=== PATIENT | female | born 1945 | race Two or more races ===

== ENCOUNTER 2025-07-09 13:10 | Inpatient (IN) | payer OTHER, MEDICAID ==
[~2025-07-09] VITALS: Ht 160 cm; Wt 54.0 kg
[2025-07-09 14:30] VITALS: PULSE 90; RESP 12; O2SAT 96
--- NOTE | 2025-07-09 15:09 | DVH ---
CLINICAL HISTORY: fall TECHNIQUE: Helical scanning was performed of the head from the skull base to the vertex. Multiplanar reconstructions were performed. This exam was performed according to our departmental dose optimizat ion program. Up-to-date CT equipment and radiation dose reduction techniques are utilized as appropri ate. CTDI 58.6 DLP 152.1 COMPARISON: None FINDINGS: There is no evidence for acute intracranial hemorrhage, acute ischemic changes, mass, mass effect, or extra-axial fluid collection. There is no hydrocephalus or midline shift. There is no effacement of the cerebral sulci and basal subarachnoid cisterns. The cordova-white matter differentiation is well nicanor ntained. There is mild brain volume loss and minimal chronic small vessel schema change. The imaged paranasal sinuses are clear. IMPRESSION: NO ACUTE INTRACRANIAL ABNORMALITY SEEN.
--- NOTE | 2025-07-09 16:19 | DVH ---
XY CHEST PORTABLE, HISTORY: ams COMPARISON: None None TECHNICAL DATA: 1 view of the chest was obtained. FINDINGS: Lines and tubes: None Cardiomediastinal silhouette: normal Pulmonary vasculature: normal Lung expansion: low Lung airspace: normal Lung interstitium: prominent Pleura: normal Pneumothorax: no Bones: Unremarkable Other: no IMPRESSION: Mild intersitital pulmonary edema.
--- NOTE | 2025-07-09 16:25 | ED.PDOC ---
Payam. trauma (HPI) HPI Comments This is a 79 year old female MAXIMILIANA presenting to the ED with chief complaint of head injury s/p fall. EMS reports patient had gotten out of bed an hour ago and he slipped and fell backwards, hitting her head. EMS relays that the patient now has a laceration to the back of her head with uncontrolled bleeding, so they wrapped it en route to the ED. EMS denies any witnessed LOC, dizziness, N/V, or further injury. Chief Complaint: Fall Injury Time Seen by MD: 15:00 Reviewed notes: Nurses Notes, Bingo Manager Notes, Medications, Allergies Allergies: Coded Allergies: NO KNOWN ALLERGIES (Unverified , 07/09/25) Information Source: Patient, Emergency Med Personnel Mode of Arrival: EMS Severity: Moderate Timing: Hours Duration: Since onset Prehospital treatment: None Location: Head Location of laceration: Head Mechanism: Fall Past Medical History PAST MEDICAL HISTORY: Dementia Surgical History: Denies all surgeries CERTIFIED PHYSICIAN ASSISTANT History: Denies all CERTIFIED PHYSICIAN ASSISTANT Hx Family History Family History: Reviewed,noncontributory to illness Social History Smoker: Non-Smoker Alcohol: Denies ETOH Use Drugs: Denies Drug Use Lives In: [facility] Constitutional: denies: chills, diaphoresis, fatigue, fever, malaise, sweats, weakness, others EENTM: denies: blurred vision, double vision, ear bleeding, ear discharge, ear drainage, ear pain, ear ringing, eye pain, eye redness, hearing loss, mouth pain, mouth swelling, nasal discharge, nose bleeding, nose congestion, nose pain, photophobia, tearing, throat pain, throat swelling, voice changes, others Respiratory: denies: cough, hemoptysis, orthopnea, SOB at rest, shortness of breath, SOB with excertion, stridor, wheezing, others Cardiovascular: denies: chest pain, dizzy spells, diaphoresis, Dyspnea on exertion, edema, irregular heart beat, left arm pain, lightheadedness, palpitations, PND, syncope, others Gastrointestinal: denies: abdomen distended, abdominal pain, blood streaked bowels, constipated, diarrhea, dysphagia, difficulty swallowing, hematemesis, melena, nausea, poor appetite, poor fluid intake, rectal bleeding, rectal pain, vomiting, others Genitourinary: denies: abnormal vagina bleeding, burning, dyspareunia, dysuria, flank pain, frequency, hematuria, incontinence, pain, , vagina disc harge, urgency, others Neurological: denies: dizziness, fainting, headache, left sided numbness, left sided weakness, numbness, paresthesia, pre-existing deficit, right sided numbness, right sided weakness, seizure, speech problems, tingling, tremors, weakness, others Musculoskeletal: denies: back pain, gout, joint pain, joint swelling, muscle pain, muscle stiffness, neck pain, others Integumetry: reports: laceration (scalp); denies: bruises, change in color, change in hair/nails, dryness, lesions, lumps, rash, wounds, others Allergic/Immunocompromised: denies: Difficulty Healing, Frequent Infections, Hives, Itching, others Hematologic/Lymphatic: denies: anemia, blood clots, easy bleeding, easy bruising, swollen glands, others Endocrine: denies: excessive hunger, excessive sweating, excessive thirst, excessive urination, flushing, intolerance to cold, intolerance to heat, unexplained weight gain, unexplained weight loss, others Psychiatric: denies: anxiety, bipolar disorder, depression, hopeless, panic disorder, schizophrenia, sleepless, suicidal, others All Other Systems: Reviewed and Negative Physical Exam General Appearance: No Apparent Distress, Normal HEENT: Normal ENT Inspection, Pharynx Normal, TMs Normal Neck: Full Range of Motion, Non-Tender, Normal, Normal Inspection Respiratory: Chest Non-Tender, Lungs Clear, No Accessory Muscle Use, No Respiratory Distress, Normal Breath Sounds Cardiovascular: No Edema, No JVD, No Murmur, No Gallop, Normal Peripheral Pulses, Regular Rate/Rhythm Breast Exam: Deferred Gastrointestinal: No Organomegaly, Non Tender, No Pulsatile Mass, Normal Bowel Sounds, Soft Genitalia: Deferred Pelvic: Deferred Rectal: Deferred Extremities: No calf tenderness, Normal capillary refill, Normal inspection, Normal range of motion, Non-tender, No pedal edema Musculoskeletal : Apperance: Normal Neurologic: Alert, laboratory equipment cleaner II-XII nml as Tested, No Motor Deficits, Normal Affect, Normal Mood, No Sensory Deficits Cerebellar Function: Normal Reflexes: Normal Skin: Dry, Lacerations (1cm bleeding laceration to scalp), Normal Color, Warm Lymphatic: No Adenopathy Was a procedure done? Was a procedure done?: Yes Sedation Sedation?: No Laceration Repair : Location Scalp Length 1cm Anesthetic: Lidocaine, Without epi Laceration Repair Prep: Saline, Betadine, by Irrigation, Manual Scrub Laceration Repair Wound Comple: subcut tissue repair Laceration Repair: SQ, [place] (4 corry) Informed consent obtained: Yes Risks, benefits, and alternati: Yes Differential Diagnosis Multiple Trauma: Closed Head Injury, Contusion, Laceration X-Ray, Labs, Meds, VS Vital Signs Date Time Temp Pulse Resp B/P (MAP) Pulse Ox O2 Delivery O2 Flow Rate FiO2 07/09/25 18:00 66 11 123/86 (98) 99 07/09/25 16:00 72 07/09/25 16:00 74 21 149/84 (105) 98 07/09/25 15:00 64 11 126/86 (99) 98 07/09/25 14:30 90 12 96 Room Air* 0 21 07/09/25 14:30 97.6 90 12 123/81 (95) 96 97.6 07/09/25 13:25 98.9 80 14 160/80 100 98.9 Lab Test 07/09/25 18:11 07/09/25 17:28 07/09/25 16:05 Range/Units POC Glucose 153 H 70-106 mg/dl Troponin I High Sensitivity Pending 5 </=34 ng/L White Blood Count 13.6 H 4.4-10.8 10^3/uL Red Blood Count 4.41 4.0-5.20 10^6/uL Hemoglobin 13.3 12.2-16.2 g/dL Hematocrit 40.3 36.0-46.0 % Mean Corpuscular Volume 91.4 80.0-100.0 fL Mean Corpuscular Hemoglobin 30.3 28.0-32.0 pg Mean Corpuscular Hemoglobin Concent 33.1 32.0-36.0 g/dL Red Cell Distribution Width 14.5 H 11.8-14.3 % Platelet Count 154 140-450 10^3/uL Mean Platelet Volume 9.9 6.9-10.8 fL Neutrophils (%) (Auto) 83.8 H 37.0-80.0 % Lymphocytes (%) (Auto) 9.5 L 10.0-50.0 % Monocytes (%) (Auto) 6.4 0.0-12.0 % Eosinophils (%) (Auto) 0.2 0.0-7.0 % Basophils (%) (Auto) 0.1 0.0-2.0 % Neutrophils # (Auto) 11.4 H 1.6-8.6 10 ^3/uL Lymphocytes # (Auto) 1.3 0.4-5.4 10 ^3/uL Monocytes # (Auto) 0.9 0-1.3 10 ^3/uL Eosinophils # (Auto) 0 0-0.8 10 ^3/uL Basophils # (Auto) 0 0-0.2 10 ^3/uL Nucleated Red Blood Cells 0.1 % Sodium Level 144 136-145 mmol/L Potassium Level 3.2 L 3.5-5.1 mmol/L Chloride Level 109 H 98-107 mmol/L Carbon Dioxide Level 22 20-31 mmol/L Anion Gap 13 5-15 Blood Urea Nitrogen 8 L 9-23 mg/dL Creatinine 0.71 0.550-1.02 mg/dL Glomerular Filtration Rate Calc 86 >90 mL/min BUN/Creatinine Ratio 11.3 10.0-20.0 Serum Glucose 36 *L 74-106 mg/dL Calcium Level 9.6 8.7-10.4 mg/dL Plasma/Serum Blood Alcohol < 3.0 <10 mg/dL Current Medications Medications (Trade) Dose Ordered Sig/Sven Route Start Time Stop Time Status Last Admin Dextrose 50 ml ONCE ONCE IV 07/09/25 17:15 07/09/25 17:16 DC 07/09/25 17:14 Time of 1ST Reevaluation: 15:30 Reevaluation 1ST: Improved Patient Education/Counseling: Diagnosis, Treatment Family Education/Counseling: No Family Present Departure 1 Departure Time of Disposition: 18:36 (Patient presents with altered mental status after a fall. Patient's laceration was repaired by me. Patient's workup is benign. We will admit patient for further workup and expert consultation) Impression: Primary Impression: Acute metabolic encephalopathy Additional Impressions: Altered mental status Qualified Codes: R41.82 - Altered mental status, unspecified Scalp laceration Qualified Codes: S01.01XA - Laceration without foreign body of scalp, initial encounter Fall Qualified Codes: W19.XXXA - Unspecified fall, initial encounter Disposition: ADMITTED INPATIENT Admit to: Med Surg Condition: Serious Critical Care Note Critical Care Time?: Yes Critical care comment: Altered Mental status Authorized and Performed by: Harry Reyes MD Total critical care time: Approximately 78 minutes Due to a high probability of clinically significant, life threatening deterioration, the patient required my highest level of preparedness to intervene emergently and I personally spent this critical care time directly and personally managing the patient. This critical care time included obtaining a history; examining the patient; pulse oximetry; ordering and review of studies; arranging urgent treatment with development of a management plan; evaluation of patient's response to treatment; frequent reassessment; and, discussions with other providers. This critical care time was performed to assess and manage the high probability of imminent, life-threatening deterioration that could result in multi-organ failure. It was exclusive of separately billable procedures and treating other patients and teaching time. Please see my other sections and the rest of the note for further information on patient assessment and treatment. Stability Stability form required: No Heart Score Heart Score: Heart Score Response (Comments) Value History N/A 0 EKG N/A 0 Age N/A 0 Risk Factors N/A 0 Troponin N/A 0 Total 0 I personally scribed for HARRY REYES MD ([email or web address]) on 07/09/25 at 16:25. Electronically submitted by Willie Villanueva ([email or web address]). HARRY REYES MD Jul 09, 2025 16:25
[2025-07-09 16:40] LABS: Sodium 144 mmol/L (136-145)
[2025-07-09 16:41] LABS: Anion Gap 13 (5-15); Calcium 9.6 mg/dL (8.7-10.4); Carbon Dioxide 22 mmol/L (20-31); Hematocrit 40.3 % (36.0-46.0); Hemoglobin 13.3 g/dL (12.2-16.2); Mean Corpuscular Hemoglobin 30.3 pg (28.0-32.0); Mean Corpuscular Volume 91.4 fL (80.0-100.0); Nucleated Red Blood Cells % 0.1 %
[2025-07-09 16:46] LABS: BUN/Creatinine Ratio 11.3 (10.0-20.0)
[2025-07-09 17:07] LABS: Blood Urea Nitrogen 8 mg/dL (9-23); Chloride 109 mmol/L (98-107); Potassium 3.2 mmol/L (3.5-5.1)
[2025-07-09 17:10] LABS: Glucose 36 mg/dL (74-106)
[2025-07-09] MEDS: DEXTROSE (50%) 50ML SYRG IV ONE (17:14)
[2025-07-09 18:40] LABS: Urine Protein, UAD 1+ (Negative)
[2025-07-09] MEDS ORDERED: ONDANSETRON HCL 4 MG/2 ML VIAL IV PRN (21:45)
[2025-07-09] MEDS ORDERED: DOCUSATE SOD 100 MG CAP PO PRN (21:45)
[2025-07-09] MEDS ORDERED: DEXTROSE (50%) 50ML SYRG IV PRN (21:45)
[2025-07-09] MEDS: SODIUM CHLOR 0.9% PF (SALINE LOCK) 10ML VIAL/SYR IV SCH (22:02)
[2025-07-09] MEDS: FUROSEMIDE 20 MG/2 ML VIAL IV ONE (22:11)
[2025-07-09] MEDS: POTASSIUM CHL 20 Meq TABLET PO ONE (22:12)
[2025-07-09] MEDS ORDERED: MORPHINE SULFATE INJ 2 MG/ml SYRG IV PRN (23:45)
[2025-07-09] MEDS ORDERED: NITROGLYCERIN 0.4 MG SL TAB SL PRN (23:45)
--- NOTE | 2025-07-09 23:45 | DVHHP2 ---
History of Present Illness Reason for Visit: Acute metabolic encephalopathy History of Present Illness The patient is a 79-year-old female with past medical history of dementia who presented to [facility] ED for evaluation of mechanical fall at home with head injury. As reported by EMS, the patient was walking to the bathroom when she slipped and fall backward hitting her head with sustained laceration to the back of her head with control bleeding, wrapped with bandage EN route to our facility ED. Patient was seen and evaluated in the ED, laboratory data shows WBC 13.6, platelets 154, sodium 144, potassium 3.2, BUN 8, creatinine 0.71, glucose 36, calcium 9.6, troponin 5, blood pressure 101/50, heart rate 66, temperature 98.6 F, O2 saturation 98% on room air. Head CT showed no acute intracranial abnormality, chest x-ray revealing mild interstitial pulmonary edema. Please see medication orders section in the computer. On my assessment, patient denied chest pain, no headache, no dizziness, no diaphoresis, blurry vision, no loss of consciousness, no shortness of breaths, no nausea, no vomiting, no fever, no chills. Patient was admitted for further evaluation and medical management. Past Medical History Dementia Past Surgical History Denies all surgeries Family History Reviewed, noncontributory to the management of this case. Past Social History The patient lives at home, denies smoking, alcohol or illicit drugs abuse. Review of Systems Constitutional: Yes: Weakness; No: Fever, Chills, Sweats, Malaise, Other Eyes: No: Pain, Vision change, Conjunctivae inflammation, Eyelid inflammation, Other, Redness ENT: No: Ear pain, Ear discharge, Nose pain, Nose discharge, Nose congestion, Mouth pain, Mouth swelling, Throat pain, Throat swelling, Other Respiratory: No: Cough, Dry, Shortness of breath, SOB with excertion, Wheezing, Hemoptysis, Pleuritic Pain, Sputum, Wheezing, Other Cardiovascular: No: Chest Pain, Palpitations, Orthopnea, Paroxysmal Noc. Dyspnea, Edema, Lt Headedness, Other Gastrointestinal: No: Nausea, Vomiting, Abdominal Pain, Diarrhea, Constipation, Melena, Hematochezia, Other Genitourinary: No Dysuria, No Frequency, No Incontinence, No Hematuria, No Retention, No Other Musculoskeletal: No: other, neck pain, shoulder pain, arm pain, back pain, hand pain, leg pain, foot pain Skin: Other (Scalp laceration.); No: Rash, Lesions, Jaundice, Bruising Neurological: No: Weakness, Numbness, Incoordination, Change in speech, Confusion, Seizures, Other Allergies: Coded Allergies: NO KNOWN ALLERGIES (Unverified , 07/09/25) Medications Current Medications Medications Dose Ordered Sig/Sven Route Start Time Stop Time Status Last Admin Dose Admin Ceftriaxone Sodium 50 ml @ 100 mls/hr DAILY@09 IV 07/10/25 09:00 Diagnostic Test (Pha) 1 strip IQ4HR 07/10/25 00:00 Insulin Human Regular IQ4HR SC 07/10/25 00:00 Dextrose 50 ml UD PRN IV 07/09/25 21:45 Sodium Chloride 10 ml Q8HR IV 07/09/25 22:00 07/09/25 22:02 10 ML Acetaminophen/ Hydrocodone Bitart 1 tab Q4HP PRN PO 07/09/25 21:45 Ondansetron HCl 4 mg Q4HP PRN IV 07/09/25 21:45 Docusate Sodium 100 mg BIDPRN PRN PO 07/09/25 21:45 Acetaminophen 650 mg Q6HP PRN PO 07/09/25 21:45 Furosemide 20 mg DAILY IV 07/10/25 10:00 Exam Vital Signs Vital Signs Date Time Temp Pulse Resp B/P (MAP) Pulse Ox O2 Delivery O2 Flow Rate FiO2 07/09/25 23:15 55 18 123/61 (81) 97 07/09/25 19:18 98.6 98.6 07/09/25 19:18 Room Air* 0 21 General Appearance: Alert, Oriented X3, Cooperative, No acute distress HEENT: Atraumatic, PERRLA, EOMI, Mucous membr. moist/pink Respiratory: Normal air movement Cardiovascular: Regular rate, Normal S1, Normal S2, No murmurs Abdominal: Normal bowel sounds, Soft, No tenderness, No hepatospenomegaly, No masses Extremities: No clubbing, No cyanosis, No edema, Normal pulses, No tenderness/swelling Skin: No rashes, No significant lesion Neuro: Normal speech, Normal tone, Sensation intact, Cranial nerves 3-12 NL, Reflexes 2+, Other (Generalized weakness) Psych/Mental Status: Mental status NL, Mood NL Labs/Xrays Labs Test 07/09/25 19:21 9/4/25 18:11 07/09/25 17:21 07/09/25 16:05 Range/Units Troponin I High Sensitivity 5 </=34 ng/L POC Glucose 153 H 70-106 mg/dl Urine Color Yellow Yellow Urine Clarity Clear Clear Urine pH 5.0 5.0-9.0 Urine Specific [place] 1.024 1.001-1.035 Urine Protein 1+ H Negative Urine Ketones 1+ H Negative Urine Blood 1+ H Negative /uL Urine Nitrite Negative Negative Urine Bilirubin Negative Negative Urine Urobilinogen Normal Negative mg/dL Urine Leukocyte Esterase Negative Negative /uL Urine RBC 3 0 - 4 /hpf Urine Microscopic WBC 2 0-5 /HPF Urine Squamous Epithelial Cells Few <5 /hpf Urine Calcium Oxalate Crystals Few None Seen Urine Bacteria None seen None Seen /hpf Urine Hyaline Casts Mod 0 - 2 /lpf Urine Mucus Few None Seen Urine Glucose Normal Normal mg/dL White Blood Count 13.6 H 4.4-10.8 10^3/uL Red Blood Count 4.41 4.0-5.20 10^6/uL Hemoglobin 13.3 12.2-16.2 g/dL Hematocrit 40.3 36.0-46.0 % Mean Corpuscular Volume 91.4 80.0-100.0 fL Mean Corpuscular Hemoglobin 30.3 28.0-32.0 pg Mean Corpuscular Hemoglobin Concent 33.1 32.0-36.0 g/dL Red Cell Distribution Width 14.5 H 11.8-14.3 % Platelet Count 154 140-450 10^3/uL Mean Platelet Volume 9.9 6.9-10.8 fL Neutrophils (%) (Auto) 83.8 H 37.0-80.0 % Lymphocytes (%) (Auto) 9.5 L 10.0-50.0 % Monocytes (%) (Auto) 6.4 0.0-12.0 % Eosinophils (%) (Auto) 0.2 0.0-7.0 % Basophils (%) (Auto) 0.1 0.0-2.0 % Neutrophils # (Auto) 11.4 H 1.6-8.6 10 ^3/uL Lymphocytes # (Auto) 1.3 0.4-5.4 10 ^3/uL Monocytes # (Auto) 0.9 0-1.3 10 ^3/uL Eosinophils # (Auto) 0 0-0.8 10 ^3/uL Basophils # (Auto) 0 0-0.2 10 ^3/uL Nucleated Red Blood Cells 0.1 % Sodium Level 144 136-145 mmol/L Potassium Level 3.2 L 3.5-5.1 mmol/L Chloride Level 109 H 98-107 mmol/L Carbon Dioxide Level 22 20-31 mmol/L Anion Gap 13 5-15 Blood Urea Nitrogen 8 L 9-23 mg/dL Creatinine 0.71 0.550-1.02 mg/dL Glomerular Filtration Rate Calc 86 >90 mL/min BUN/Creatinine Ratio 11.3 10.0-20.0 Serum Glucose 36 *L 74-106 mg/dL Hemoglobin A1c 5.4 <5.7 % A1C Calcium Level 9.6 8.7-10.4 mg/dL Plasma/Serum Blood Alcohol < 3.0 <10 mg/dL PATIENT: REGINALDO HARPER ACCT: [id number] UNIT: [id number] : 1945 LOC: ER ROOM / BED: / AGE / SEX: 79 / F ADM STATUS: REG ER SERVICE 1353 ORDERING PHYSICIAN: HARRY HEAD MD PROCEDURE(s): HWOCT - HEAD WITHOUT CONTRAST REASON: fall ORDER NUMBER(s): [id number], ACCESSION NUMBER(s): [id number] CLINICAL HISTORY: fall TECHNIQUE: Helical scanning was performed of the head from the skull base to the vertex. Multiplanar reconstructions were performed. This exam was performed according to our departmental dose optimization program. Up-to-date CT equipment and radiation dose reduction techniques are utilized as appropriate. CTDI 58.6 DLP 152.1 COMPARISON: None FINDINGS: There is no evidence for acute intracranial hemorrhage, acute ischemic changes, mass, mass effect, or extra-axial fluid collection. There is no hydrocephalus or midline shift. There is no effacement of the cerebral sulci and basal subarachnoid cisterns. The cordova-white matter differentiation is well maintained. There is mild brain volume loss and minimal chronic small vessel schema change. The imaged paranasal sinuses are clear. IMPRESSION: NO ACUTE INTRACRANIAL ABNORMALITY SEEN. ORDERING PHYSICIAN: HARRY HEAD MD PROCEDURE(s): CXRP - CHEST PORTABLE REASON: ams ORDER NUMBER(s): [id number], ACCESSION NUMBER(s): [id number] XY CHEST PORTABLE, HISTORY: ams COMPARISON: None None TECHNICAL DATA: 1 view of the chest was obtained. FINDINGS: Lines and tubes: None Cardiomediastinal silhouette: normal Pulmonary vasculature: normal Lung expansion: low Lung airspace: normal Lung interstitium: prominent Pleura: normal Pneumothorax: no Bones: Unremarkable Other: no IMPRESSION: Mild intersitital pulmonary edema. SEPSIS Sepsis Screen Date sepsis recognized/suspect: Jul 09, 2025 Time Sepsis recognized/suspect: 2013 Recent Procedure: No On Antibiotic Therapy: No Respiratory Rate >20: No Heart Rate >90: No Temp<36 C (96.8 F) or >38.3 C: No SBP <90 or MAP <65 mmHG: No New Acute Mental Status Change: Yes Is the patient on CPAP, BIPAP,: No Physician Orders Contact Person (07/09/25 ) Consistent Carb(Ccho)Diabetes (07/10/25 Breakfast) Ceftriaxone 1gm/50ml (Rocephin) (07/10/25 09:00) Glucose Blood (Accu-Chek Comfort Curve T (07/10/25 00:00) Insulin R (Human) (Insulin R) (07/10/25 00:00) Dextrose 50% Syringe (07/09/25 21:45) Allergies (07/09/25 21:36) Code Status (07/09/25 21:36) Sodium Chloride Lock (Saline Lock Ns) (07/09/25 22:00) Oxygen Per Hour (07/09/25 21:36) Hydrocodone-Acet 5/325mg Tab ([place] 32 (07/09/25 21:45) Ondansetron Hcl (Zofran) (07/09/25 21:45) Docusate Sodium Capsule (Colace Capsule) (07/09/25 21:45) Fall Risk Precautions In Place QSHIFT (07/09/25 21:36) Complete Blood Count (07/10/25 04:00) Comprehensive Metabolic Panel (07/10/25 04:00) Condition: Serious (07/09/25 21:36) Acetaminophen Tablet (Tylenol Tablet) (07/09/25 21:45) Maintain Bed Rest (07/09/25 21:36) Sequential Compression Device (07/09/25 ) Furosemide Injection (Lasix Injection) (07/10/25 10:00) Admit (07/09/25 23:44) Nitroglycerin Sublingual (Ntrostat Subli (07/09/25 23:45) Morphine Sulfate Injection (07/09/25 23:45) Stat Ekg For Chest Pain (07/09/25 23:44) Notify Md Of Changes From Base (07/09/25 23:44) Psychology Fellow For 24 Hours (07/09/25 23:44) Emergency Dysrhythmia Protocol (07/09/25 23:44) Rhythm Strips Once Every Shift (07/09/25 23:44) Oxygen By Nasal Cannula (07/09/25 23:44) Vital Signs Date Time Temp Pulse Resp B/P (MAP) Pulse Ox O2 Delivery O2 Flow Rate FiO2 07/09/25 23:15 55 18 123/61 (81) 97 07/09/25 22:11 126/62 07/09/25 21:12 59 17 115/54 (74) 99 07/09/25 20:00 59 07/09/25 19:18 98.6 66 13 101/50 (67) 98 98.6 07/09/25 19:18 Room Air* 0 21 07/09/25 18:00 66 11 123/86 (98) 99 07/09/25 16:00 72 07/09/25 16:00 74 21 149/84 (105) 98 Laboratory Tests Test 07/09/25 16:05 White Blood Count 13.6 10^3/uL (4.4-10.8) H Medications Medications Dose Ordered Sig/Sven Route Start Time Stop Time Status Last Admin Dose Admin Ceftriaxone Sodium 50 ml @ 100 mls/hr ONCE ONCE IV 07/09/25 21:45 07/09/25 22:14 DC 07/09/25 22:11 100 MLS/HR Dextrose 50 ml ONCE ONCE IV 07/09/25 17:15 07/09/25 17:16 DC 07/09/25 17:14 50 ML Furosemide 20 mg ONCE ONCE IV 07/09/25 21:45 07/09/25 21:47 DC 07/09/25 22:11 20 MG Potassium Chloride 40 meq ONCE ONCE PO 07/09/25 21:45 07/09/25 21:47 DC 07/09/25 22:12 40 MEQ Sodium Chloride 10 ml Q8HR IV 07/09/25 22:00 07/09/25 22:02 10 ML Assessment/Plan Assessment/Plan Acute metabolic encephalopathy Leukocytosis, unspecified Hypokalemia Pulmonary edema Altered mental status Altered mental status, unspecified Scalp laceration Laceration without foreign body of scalp, initial encounter Unspecified fall, initial encounter Plan 1. Admit to telemetry units 2. Breathing treatment 3. Pain control management 4. IV antibiotic management 5. Management of fluids and electrolytes 6. Consultation for hospitalist 7. Diagnostic test head CT 8. DVT prophylaxis--on SCDs 9. Repeat labs CBC, CMP in a.m. 10. Home medication reviewed and reconciled 11. Continue with current medical management 12. Treatment plan discussed with patient and RN. Patient verbalized understanding. Plan discussed with: Patient, Other (RN) My Orders Orders - ROMANA WEST DNP Procedure Category Date Status Time Consistent DIET 07/10/25 Transmitted Carb(Ccho)Diabetes Breakfast Ceftriaxone 1gm/50ml PHA 07/10/25 In Process (Rocephin) 09:00 Glucose Blood PHA 07/10/25 In Process (Accu-Chek Comfort 00:00 Insulin R (Human) PHA 07/10/25 In Process (Insulin R) 00:00 Dextrose 50% Syringe PHA 07/09/25 In Process 21:45 Allergies [place] 07/09/25 In Process 21:36 Code Status CODE 07/09/25 Transmitted 21:36 Sodium Chloride Lock PHA 07/09/25 In Process (Saline Lock Ns) 22:00 Oxygen Per Hour RT 07/09/25 Transmitted 21:36 Hydrocodone-Acet PHA 07/09/25 In Process 5/325mg Tab ([place] 21:45 Ondansetron Hcl PHA 07/09/25 In Process (Zofran) 21:45 Docusate Sodium PHA 07/09/25 In Process Capsule (Colace 21:45 Fall Risk Precautions [place] 07/09/[address] 21:36 Complete Blood Count LAB 07/10/25 Verified 04:00 Comprehensive LAB 07/10/25 Verified Metabolic Panel 04:00 Condition: Serious [place] 07/09/25 In Process 21:36 Acetaminophen Tablet PHA 07/09/25 In Process (Tylenol Tablet) 21:45 Maintain Bed Rest [place] 07/09/25 In Process 21:36 Sequential [facility] 07/09/25 In Process Compression Device Furosemide Injection [facility] 07/10/25 In Process (Lasix Injection) 10:00 Admit ADMIT 07/09/25 Transmitted 23:44 Nitroglycerin [facility] 07/09/25 Transmitted Sublingual (Ntrostat 23:45 Morphine Sulfate [facility] 07/09/25 Transmitted Injection 23:45 Stat Ekg For Chest [facility] 07/09/25 Transmitted Pain 23:44 Notify Md Of Changes [facility] 07/09/25 Transmitted From Base 23:44 Psychology Fellow For [facility] 07/09/25 Transmitted 24 Hours 23:44 Emergency Dysrhythmia [facility] 07/09/25 Transmitted Protocol 23:44 Rhythm Strips Once [facility] 07/09/25 Transmitted Every Shift 23:44 Oxygen By Nasal 07/09/25 Transmitted Cannula 23:44 Problem List: (1) Acute metabolic encephalopathy (2) Hypokalemia (3) Pulmonary edema (4) Leukocytosis, unspecified (5) Altered mental status (6) Altered mental status, unspecified (7) Scalp laceration (8) Laceration without foreign body of scalp, initial encounter (9) Unspecified fall, initial encounter Date of Service: Jul 09, 2025 Billing Provider: ROMANA WEST DNP Common Visit Codes: [id number] INP/OBS CARE (HIGH) ROMANA WEST DNP Jul 09, 2025 23:45
[2025-07-10] VITALS (9 sets, daily range): BP systolic 116–155; BP diastolic 69–82; PULSE 60–93; RESP 16–20; TEMP 97.7–99.1; O2SAT 0–100
[2025-07-10] MEDS: InsuLIN REG 1unit/0.01ml Soln (100units/ml) SC SCH
[2025-07-10] MEDS: ACCU-CHEK COMFORT CURVE STRIP VI SCH
[2025-07-10 07:45] LABS: Hematocrit 35.9 % (36.0-46.0); Hemoglobin 12.6 g/dL (12.2-16.2); Mean Corpuscular Hemoglobin 31.1 pg (28.0-32.0); Mean Corpuscular Volume 88.8 fL (80.0-100.0); Nucleated Red Blood Cells % 0.1 %
[2025-07-10 07:58] LABS: Alanine Aminotransferase 17 U/L (7-40); Albumin 4.3 g/dL (3.2-4.8); Alkaline Phosphatase 76 U/L (46-116); Anion Gap 12 (5-15); BUN/Creatinine Ratio 10.8 (10.0-20.0); Bilirubin, Total 0.6 mg/dL (0.2-1.0); Blood Urea Nitrogen 10 mg/dL (9-23); Calcium 9.8 mg/dL (8.7-10.4); Carbon Dioxide 26 mmol/L (20-31); Chloride 105 mmol/L (98-107); Potassium 3.8 mmol/L (3.5-5.1); Sodium 143 mmol/L (136-145); Total Protein 6.9 g/dL (5.7-8.2)
[2025-07-10 08:15] LABS: Glucose 49 mg/dL (74-106)
[2025-07-10] MEDS: FUROSEMIDE 20 MG/2 ML VIAL IV SCH (08:17)
[2025-07-10] MEDS: ACETAMINOPHEN 325 MG TAB PO PRN (20:23)
[2025-07-11] VITALS (8 sets, daily range): BP systolic 120–136; BP diastolic 60–79; PULSE 55–80; RESP 16–19; TEMP 97.5–97.9; O2SAT 0–99
[2025-07-11 15:13] LABS: Hematocrit 34.0 % (36.0-46.0); Hemoglobin 11.9 g/dL (12.2-16.2); Mean Corpuscular Hemoglobin 30.9 pg (28.0-32.0); Mean Corpuscular Volume 88.8 fL (80.0-100.0); Nucleated Red Blood Cells % 0.0 %
[2025-07-11 15:28] LABS: Alanine Aminotransferase 16 U/L (7-40); Albumin 4.2 g/dL (3.2-4.8); Alkaline Phosphatase 78 U/L (46-116); Anion Gap 10 (5-15); BUN/Creatinine Ratio 21.2 (10.0-20.0); Calcium 9.3 mg/dL (8.7-10.4); Carbon Dioxide 29 mmol/L (20-31); Chloride 101 mmol/L (98-107); Potassium 4.2 mmol/L (3.5-5.1); Sodium 140 mmol/L (136-145); Total Protein 6.4 g/dL (5.7-8.2)
[2025-07-11 15:36] LABS: Bilirubin, Total 0.2 mg/dL (0.2-1.0); Blood Urea Nitrogen 24 mg/dL (9-23); Glucose 132 mg/dL (74-106)
[2025-07-11] MEDS: SODIUM CHLORIDE 0.9% 1,000 ML IV SCH (18:13)
--- NOTE | 2025-07-11 18:15 | DVHPN2 ---
Progress Note Date Seen: Jul 10, 2025 Medical Necessity Reason Pt with a Central, PICC or Fol: No Subjective Patient reports: Feels better (resting in bed. feels more alert) Changes from previous H/P or p: No Changes Objective vital signs Vital Sign Date Time Temp Pulse Resp B/P (MAP) Pulse Ox O2 Delivery O2 Flow Rate FiO2 07/11/25 17:06 97.6 63 16 126/73 (90) 97 97.6 07/11/25 08:00 Room Air* 0 21 Total Intake and Output 07/10/25 07/10/25 07/11/25 15:00 23:00 07:00 Intake Total 50 ml 320 ml 320 ml Output Total 2 ml Balance 50 ml 320 ml 318 ml medications Current Medications Medications Dose Ordered Sig/Sven Route Start Time Stop Time Status Last Admin Dose Admin Ceftriaxone Sodium 50 ml @ 100 mls/hr DAILY@09 IV 07/10/25 09:00 07/11/25 08:08 100 MLS/HR Diagnostic Test (Pha) 1 strip IQ4HR 07/10/25 00:00 07/11/25 16:00 1 STRIP Insulin Human Regular IQ4HR SC 07/10/25 00:00 Dextrose 50 ml UD PRN IV 07/09/25 21:45 Sodium Chloride 10 ml Q8HR IV 07/09/25 22:00 07/11/25 05:21 10 ML Acetaminophen/ Hydrocodone Bitart 1 tab Q4HP PRN PO 07/09/25 21:45 Ondansetron HCl 4 mg Q4HP PRN IV 07/09/25 21:45 Docusate Sodium 100 mg BIDPRN PRN PO 07/09/25 21:45 Acetaminophen 650 mg Q6HP PRN PO 07/09/25 21:45 07/11/25 10:38 650 MG Furosemide 20 mg DAILY IV 07/10/25 10:00 07/11/25 08:09 20 MG Nitroglycerin 0.4 mg Q5MINP PRN SL 07/09/25 23:45 Morphine Sulfate 2 mg Q30M PRN IV 07/09/25 23:45 Sodium Chloride 1,000 ml @ 75 mls/hr [id number] IV 07/11/25 18:15 Examination: GENERAL:Normal, HEENT:Abnormal (posterior head pain), NECK:Normal, LUNGS:Normal, CVS:Normal, ABDOMEN:Normal, MSK:Normal, SKIN:Normal, NEURO:Normal, :Normal laboratory and microbiology Laboratory Tests 07/11/25 14:43 Test 07/11/25 14:43 Range/Units Serum Glucose 132 H 74-106 mg/dL Problem List/Assessment/Plan Problem List/Assessment/Plan Acute metabolic encephalopathy Leukocytosis, unspecified Hypokalemia Pulmonary edema Altered mental status Altered mental status, unspecified Scalp laceration Laceration without foreign body of scalp, initial encounter Unspecified fall, initial encounter laceration of back of head. no gross bleeding glucose was 40s, improve to 90-100s. ivf pain control anti-ematic neuro check trend wbc Plan discussed with: Patient My Orders My Orders Orders - ALEX FISCHER MD Procedure Category Date Status Time Complete Blood Count LAB 07/12/25 Verified 05:00 Complete Blood Count LAB 07/13/25 Verified 05:00 Complete Blood Count LAB 07/14/25 Verified 05:00 Complete Blood Count LAB 07/15/25 Verified 05:00 Complete Blood Count LAB 07/16/25 Verified 05:00 Comprehensive LAB 07/12/25 Verified Metabolic Panel 05:00 Comprehensive LAB 07/13/25 Verified Metabolic Panel 05:00 Comprehensive LAB 07/14/25 Verified Metabolic Panel 05:00 Comprehensive LAB 07/15/25 Verified Metabolic Panel 05:00 Comprehensive LAB 07/16/25 Verified Metabolic Panel 05:00 Sodium Chloride 0.9% PHA 07/11/25 In Process 18:15 Date of Service: Jul 10, 2025 Billing Provider: ALEX FISCHER MD Common Visit Codes: [id number] INP/OBS CARE(HIGH) ALEX FISCHER MD Jul 11, 2025 18:15
--- NOTE | 2025-07-11 18:16 | DVHPN2 ---
Progress Note Date Seen: Jul 11, 2025 Medical Necessity Reason Pt with a Central, PICC or Fol: No Subjective Patient reports: Feels better Objective vital signs Vital Sign Date Time Temp Pulse Resp B/P (MAP) Pulse Ox O2 Delivery O2 Flow Rate FiO2 07/11/25 17:06 97.6 63 16 126/73 (90) 97 97.6 07/11/25 08:00 Room Air* 0 21 Total Intake and Output 07/10/25 07/10/25 07/11/25 15:00 23:00 07:00 Intake Total 50 ml 320 ml 320 ml Output Total 2 ml Balance 50 ml 320 ml 318 ml medications Current Medications Medications Dose Ordered Sig/Sven Route Start Time Stop Time Status Last Admin Dose Admin Ceftriaxone Sodium 50 ml @ 100 mls/hr DAILY@09 IV 07/10/25 09:00 07/11/25 08:08 100 MLS/HR Diagnostic Test (Pha) 1 strip IQ4HR 07/10/25 00:00 07/11/25 16:00 1 STRIP Insulin Human Regular IQ4HR SC 07/10/25 00:00 Dextrose 50 ml UD PRN IV 07/09/25 21:45 Sodium Chloride 10 ml Q8HR IV 07/09/25 22:00 07/11/25 05:21 10 ML Acetaminophen/ Hydrocodone Bitart 1 tab Q4HP PRN PO 07/09/25 21:45 Ondansetron HCl 4 mg Q4HP PRN IV 07/09/25 21:45 Docusate Sodium 100 mg BIDPRN PRN PO 07/09/25 21:45 Acetaminophen 650 mg Q6HP PRN PO 07/09/25 21:45 07/11/25 10:38 650 MG Furosemide 20 mg DAILY IV 07/10/25 10:00 07/11/25 08:09 20 MG Nitroglycerin 0.4 mg Q5MINP PRN SL 07/09/25 23:45 Morphine Sulfate 2 mg Q30M PRN IV 07/09/25 23:45 Sodium Chloride 1,000 ml @ 75 mls/hr [id number] IV 07/11/25 18:15 Examination: GENERAL:Normal, HEENT:Abnormal (posterior head lesion no gross bleeding), NECK:Normal, LUNGS:Normal, CVS:Normal, ABDOMEN:Normal, MSK:Normal, SKIN:Normal, NEURO:Normal, :Normal laboratory and microbiology Laboratory Tests 07/11/25 14:43 Test 07/11/25 14:43 Range/Units Serum Glucose 132 H 74-106 mg/dL Problem List/Assessment/Plan Problem List/Assessment/Plan Acute metabolic encephalopathy Leukocytosis, unspecified Hypokalemia Pulmonary edema Altered mental status Altered mental status, unspecified Scalp laceration BARTOLOME Laceration without foreign body of scalp, initial encounter Unspecified fall, initial encounter laceration of back of head. no gross bleeding glucose stable at 100s renal function worsen IVF pain control anti-ematic neuro check trend wbc Plan discussed with: Patient My Orders My Orders Orders - ALEX FISCHER MD Procedure Category Date Status Time Complete Blood Count LAB 07/12/25 Verified 05:00 Complete Blood Count LAB 07/13/25 Verified 05:00 Complete Blood Count LAB 07/14/25 Verified 05:00 Complete Blood Count LAB 07/15/25 Verified 05:00 Complete Blood Count LAB 07/16/25 Verified 05:00 Comprehensive LAB 07/12/25 Verified Metabolic Panel 05:00 Comprehensive LAB 07/13/25 Verified Metabolic Panel 05:00 Comprehensive LAB 07/14/25 Verified Metabolic Panel 05:00 Comprehensive LAB 07/15/25 Verified Metabolic Panel 05:00 Comprehensive LAB 07/16/25 Verified Metabolic Panel 05:00 Sodium Chloride 0.9% PHA 07/11/25 In Process 18:15 Dietary Evaluation Review Comments: 1) Initiate Glucerna qd 2) Encourage optimal PO intake 3) Follow-up with neurology 4) Continue to monitor I&O, labs, and skin integrity Expected Outcomes/Goals: 1) appetite and labs to improve 2) f/u in 3-5 days Date of Service: Jul 11, 2025 Billing Provider: ALEX FISCHER MD Common Visit Codes: [id number] INP/OBS CARE(MOD) ALEX FISCHER MD Jul 11, 2025 18:16
[2025-07-12] VITALS (8 sets, daily range): BP systolic 112–137; BP diastolic 63–78; PULSE 56–80; RESP 16–18; TEMP 97.6–98.6; O2SAT 0–100
[2025-07-12 07:43] LABS: Hematocrit 31.4 % (36.0-46.0); Hemoglobin 11.2 g/dL (12.2-16.2); Mean Corpuscular Hemoglobin 31.5 pg (28.0-32.0); Mean Corpuscular Volume 88.3 fL (80.0-100.0); Nucleated Red Blood Cells % 0.1 %
[2025-07-12 08:05] LABS: Alanine Aminotransferase 13 U/L (7-40); Alkaline Phosphatase 71 U/L (46-116); Anion Gap 10 (5-15); BUN/Creatinine Ratio 22.1 (10.0-20.0); Blood Urea Nitrogen 21 mg/dL (9-23); Calcium 9.1 mg/dL (8.7-10.4); Carbon Dioxide 26 mmol/L (20-31); Chloride 103 mmol/L (98-107); Potassium 3.7 mmol/L (3.5-5.1); Sodium 139 mmol/L (136-145); Total Protein 6.5 g/dL (5.7-8.2)
[2025-07-12 08:06] LABS: Albumin 4.0 g/dL (3.2-4.8)
[2025-07-12 08:07] LABS: Bilirubin, Total 0.3 mg/dL (0.2-1.0)
[2025-07-12 08:09] LABS: Glucose 112 mg/dL (74-106)
--- NOTE | 2025-07-12 14:00 | DVH ---
CHEST RADIOGRAPH Indication: AMS Technique: Single frontal view of the chest was obtained Comparison: XY CHEST PORTABLE on DOS: 07/09/25 FINDINGS: Lines and Tubes: None Lungs: No focal consolidation. Pleura: No effusion. No pneumothorax. Cardiomediastinal contours: Unremarkable Bones: No acute osseous abnormality. IMPRESSION: 1. No acute cardiopulmonary disease.
--- NOTE | 2025-07-12 15:31 | DVHPN2 ---
Progress Note Date Seen: Jul 12, 2025 Medical Necessity Reason Pt with a Central, PICC or Fol: No Subjective Patient reports: Feels worse (Patient seems confused well repeat chest x-ray and UA) Objective vital signs Vital Sign Date Time Temp Pulse Resp B/P (MAP) Pulse Ox O2 Delivery O2 Flow Rate FiO2 07/12/25 13:00 98.2 69 17 120/74 (89) 97 98.2 07/12/25 08:00 Room Air* 0 21 Total Intake and Output 07/11/25 07/11/25 07/12/25 15:00 23:00 07:00 Intake Total 50 ml 230 ml 300 ml Balance 50 ml 230 ml 300 ml medications Current Medications Medications Dose Ordered Sig/Sven Route Start Time Stop Time Status Last Admin Dose Admin Ceftriaxone Sodium 50 ml @ 100 mls/hr DAILY@09 IV 07/10/25 09:00 07/12/25 09:46 100 MLS/HR Diagnostic Test (Pha) 1 strip IQ4HR 07/10/25 00:00 07/12/25 12:00 1 STRIP Insulin Human Regular IQ4HR SC 07/10/25 00:00 Dextrose 50 ml UD PRN IV 07/09/25 21:45 Sodium Chloride 10 ml Q8HR IV 07/09/25 22:00 07/12/25 05:11 10 ML Acetaminophen/ Hydrocodone Bitart 1 tab Q4HP PRN PO 07/09/25 21:45 Ondansetron HCl 4 mg Q4HP PRN IV 07/09/25 21:45 Docusate Sodium 100 mg BIDPRN PRN PO 07/09/25 21:45 Acetaminophen 650 mg Q6HP PRN PO 07/09/25 21:45 07/12/25 00:29 650 MG Furosemide 20 mg DAILY IV 07/10/25 10:00 07/12/25 09:41 20 MG Nitroglycerin 0.4 mg Q5MINP PRN SL 07/09/25 23:45 Morphine Sulfate 2 mg Q30M PRN IV 07/09/25 23:45 Sodium Chloride 1,000 ml @ 75 mls/hr [id number] IV 07/11/25 18:15 Examination: GENERAL:Normal, HEENT:Normal, NECK:Normal, LUNGS:Normal, CVS:Normal, ABDOMEN:Normal, MSK:Normal, SKIN:Normal, NEURO:Normal, :Normal laboratory and microbiology Laboratory Tests 07/12/25 05:30 Test 07/12/25 05:30 Range/Units Serum Glucose 112 H 74-106 mg/dL Problem List/Assessment/Plan Problem List/Assessment/Plan Acute metabolic encephalopathy Leukocytosis, unspecified Hypokalemia Pulmonary edema Altered mental status Altered mental status, unspecified Scalp laceration BARTOLOME Laceration without foreign body of scalp, initial encounter Unspecified fall, initial encounter laceration of back of head. no gross bleeding glucrenal function worsen Renal function improved Check chest x-ray, and UA to rule out infection pain control anti-ematic neuro check If stable can discharge tomorrow Plan discussed with: Patient My Orders My Orders Orders - ALEX FISCHER MD Procedure Category Date Status Time Sodium Chloride 0.9% PHA 07/11/25 In Process 18:15 Pharmacy To Reconcile ORDERS 07/12/25 Transmitted Home Med 10:57 Chest Xray 1 View XY 07/12/25 Resulted 12:39 Urinalysis LAB 07/12/25 Logged 12:39 Dietary Evaluation Review Comments: 1) Initiate Glucerna qd 2) Encourage optimal PO intake 3) Follow-up with neurology 4) Continue to monitor I&O, labs, and skin integrity Expected Outcomes/Goals: 1) appetite and labs to improve 2) f/u in 3-5 days Date of Service: Jul 12, 2025 Billing Provider: ALEX FISCHER MD Common Visit Codes: [id number] INP/OBS CARE(MOD) ALEX FISCHER MD Jul 12, 2025 15:31
[2025-07-13 01:00] VITALS: BP 126/87; PULSE 62; RESP 18; TEMP 97.5; O2SAT 98
[2025-07-13 02:15] LABS: Urine Protein, UAD Negative (Negative)
[2025-07-13 05:00] VITALS: BP 120/72; PULSE 61; RESP 18; TEMP 97; O2SAT 96
[2025-07-13 05:31] LABS: Hematocrit 31.8 % (36.0-46.0); Hemoglobin 11.0 g/dL (12.2-16.2); Mean Corpuscular Hemoglobin 30.4 pg (28.0-32.0); Mean Corpuscular Volume 88.3 fL (80.0-100.0); Nucleated Red Blood Cells % 0.0 %
[2025-07-13 05:48] LABS: Alanine Aminotransferase 14 U/L (7-40); Albumin 4.0 g/dL (3.2-4.8); Alkaline Phosphatase 72 U/L (46-116); Anion Gap 8 (5-15); BUN/Creatinine Ratio 26.3 (10.0-20.0); Bilirubin, Total 0.4 mg/dL (0.2-1.0); Blood Urea Nitrogen 26 mg/dL (9-23); Calcium 9.2 mg/dL (8.7-10.4); Carbon Dioxide 29 mmol/L (20-31); Chloride 102 mmol/L (98-107); Glucose 102 mg/dL (74-106); Potassium 3.9 mmol/L (3.5-5.1); Sodium 139 mmol/L (136-145); Total Protein 6.4 g/dL (5.7-8.2)
[2025-07-13] MEDS: HYDROcodone-ACET 5/325MG TAB PO PRN (06:00)
[2025-07-13 08:00] VITALS: PULSE 53; PULSE 55; RESP 16
[2025-07-13 09:00] VITALS: BP 116/72; PULSE 54; RESP 12; TEMP 96.8; O2SAT 98
[2025-07-13 13:00] VITALS: BP 121/58; PULSE 60; RESP 12; TEMP 98.1; O2SAT 97
--- NOTE | 2025-07-13 13:33 | DVHDS2 ---
Discharge Summary Date of Admission Jul 09, 2025 at 23:44 Date of Discharge: Jul 13, 2025 Admitting Diagnosis Acute metabolic encephalopathy Labs/Diagnostic Data: Laboratory Results Test 07/13/25 11:36 07/13/25 01:19 07/13/25 00:45 07/09/25 19:21 POC Glucose 129 mg/dl (70-106) Urine Color Light-yellow (Yellow) Urine Clarity Clear (Clear) Urine pH 5.5 (5.0-9.0) Urine Specific [place] 1.017 (1.001-1.035) Urine Protein Negative (Negative) Urine Ketones Negative (Negative) Urine Blood Negative /uL (Negative) Urine Nitrite Negative (Negative) Urine Bilirubin Negative (Negative) Urine Urobilinogen Normal mg/dL (Negative) Urine Leukocyte Esterase Negative /uL (Negative) Urine RBC None seen /hpf (0 - 4) Urine Microscopic WBC < 1 /HPF (0-5) Urine Squamous Epithelial Cells Few /hpf (<5) Urine Bacteria None seen /hpf (None Seen) Urine Glucose Normal mg/dL (Normal) White Blood Count 5.5 10^3/uL (4.4-10.8) Red Blood Count 3.60 10^6/uL (4.0-5.20) Hemoglobin 11.0 g/dL (12.2-16.2) Hematocrit 31.8 % (36.0-46.0) Mean Corpuscular Volume 88.3 fL (80.0-100.0) Mean Corpuscular Hemoglobin 30.4 pg (28.0-32.0) Mean Corpuscular Hemoglobin Concent 34.5 g/dL (32.0-36.0) Red Cell Distribution Width 13.8 % (11.8-14.3) Platelet Count 147 10^3/uL (140-450) Mean Platelet Volume 9.7 fL (6.9-10.8) Neutrophils (%) (Auto) 41.9 % (37.0-80.0) Lymphocytes (%) (Auto) 37.3 % (10.0-50.0) Monocytes (%) (Auto) 8.9 % (0.0-12.0) Eosinophils (%) (Auto) 11.4 % (0.0-7.0) Basophils (%) (Auto) 0.5 % (0.0-2.0) Neutrophils # (Auto) 2.3 10 ^3/uL (1.6-8.6) Lymphocytes # (Auto) 2.0 10 ^3/uL (0.4-5.4) Monocytes # (Auto) 0.5 10 ^3/uL (0-1.3) Eosinophils # (Auto) 0.6 10 ^3/uL (0-0.8) Basophils # (Auto) 0 10 ^3/uL (0-0.2) Nucleated Red Blood Cells 0.0 % Sodium Level 139 mmol/L (136-145) Potassium Level 3.9 mmol/L (3.5-5.1) Chloride Level 102 mmol/L (98-107) Carbon Dioxide Level 29 mmol/L (20-31) Anion Gap 8 (5-15) Blood Urea Nitrogen 26 mg/dL (9-23) Creatinine 0.99 mg/dL (0.550-1.02) Glomerular Filtration Rate Calc 58 mL/min (>90) BUN/Creatinine Ratio 26.3 (10.0-20.0) Serum Glucose 102 mg/dL (74-106) Calcium Level 9.2 mg/dL (8.7-10.4) Total Bilirubin 0.4 mg/dL (0.2-1.0) Aspartate Amino Transferase (AST) 27 U/L (13-40) Alanine Aminotransferase (ALT) 14 U/L (7-40) Alkaline Phosphatase 72 U/L (46-116) Total Protein 6.4 g/dL (5.7-8.2) Albumin 4.0 g/dL (3.2-4.8) Troponin I High Sensitivity 5 ng/L (</=34) Test 07/09/25 17:21 07/09/25 16:05 Urine Calcium Oxalate Crystals Few (None Seen) Urine Hyaline Casts Mod /lpf (0 - 2) Urine Mucus Few (None Seen) Hemoglobin A1c 5.4 % A1C (<5.7) Plasma/Serum Blood Alcohol < 3.0 mg/dL (<10) Other Laboratory Tests 07/13/25 00:45 Brief Hx & Hospital Course: History of Present Illness The patient is a 79-year-old female with past medical history of dementia who presented to [facility] ED for evaluation of mechanical fall at home with head injury. As reported by EMS, the patient was walking to the bathroom when she slipped and fall backward hitting her head with sustained laceration to the back of her head with control bleeding, wrapped with bandage EN route to our facility ED. Patient was seen and evaluated in the ED, laboratory data shows WBC 13.6, platelets 154, sodium 144, potassium 3.2, BUN 8, creatinine 0.71, glucose 36, calcium 9.6, troponin 5, blood pressure 101/50, heart rate 66, temperature 98.6 F, O2 saturation 98% on room air. Head CT showed no acute intracranial abnormality, chest x-ray revealing mild interstitial pulmonary edema. Please see medication orders section in the computer. On my assessment, patient denied chest pain, no headache, no dizziness, no diaphoresis, blurry vision, no loss of consciousness, no shortness of breaths, no nausea, no vomiting, no fever, no chills. Patient was admitted for further evaluation and medical management. Course of hospitalization: Patient was treated with IV hydration, antibiotic therapy given patient had elevated white blood cell count. Cultures has been negative. Patient's encephalopathy has resolved. CT scan of the head is negative for any acute pathology. Patient will be discharged home as instructed to follow up with her PCP in 1-2 weeks. Physical examination General: Alert and Oriented x3. No acute distress. Well-nourished. Eyes: EOMI. Anicteric. HENT: Moist mucous membranes. Lungs: Clear to auscultation bilaterally. No accessory muscle use. Cardiovascular: Regular rate and rhythm. No murmur. No JVD. Abdomen: Soft, non-tender and non-distended. No palpable masses. Extremities: No edema. Non-tender. Skin: No rashes or lesions. Warm. Neurologic: No focal neurological deficits. CN II-XII grossly intact, but not individually tested. Psychiatric: Cooperative. Appropriate mood and affect. Total time spent with patient discussing and formulating plan of care: 35 minutes. This medical document was created using an electronic medical record system with [employer] dictation system. Although this document has been carefully reviewed, there may still be some phonetic and typographical errors. These areas are purely typographical due to imperfections of the software programs, and do not reflect any compromise in the patient's medical care. Condition at Discharge: Fair Final Diagnosis/Problems List Metabolic encephalopathy, mechanical fall Secondary diagnosis: Leukocytosis, unspecified. Sepsis ruled out Hypokalemia Pulmonary edema Altered mental status Altered mental status, unspecified Scalp laceration BARTOLOME Laceration without foreign body of scalp, initial encounter Unspecified fall, initial encounter Discharge Disposition: Home Discharge Instruct/Medications Diet: Regular Activity: No Restrictions, As Tolerated Follow Up/Referral: Follow up with the PCP in 1-2 weeks Medications: Continue all home medications No Active Prescriptions or Reported Meds 36 Discharge Statement: "Patient was advised to return to the ER or call 911 if any headaches, dizziness, shortness of breath, chest pain, abdominal pain, bleeding, fevers, or worsening of medical condition. Patient was counseled about treatment plan, medications, possible side effects, patientverbalized understanding. All questions were answered to the best of my ability. This discharge took greater then 30 minutes in planning, reviewing documentation, counseling the patient, and discussing with other team members." ASSESSMENT ASSESSMENT Assessment Metabolic encephalopathy, mechanical fall Date of Service: Jul 13, 2025 Billing Provider: TEO MCKINNEY NP Common Visit Codes: 53696-MZQ/OBS DISCH DAY >30min TEO MCKINNEY NP Jul 13, 2025 13:33
[2025-07-13 13:50] VITALS: BP 130/62; TEMP 36.7
== END 2025-07-13 16:20 | disposition home or self-care (01) | DRG 604 ==
LOC: ER 13:10 → EDBD 13:10 → OVERFLOW 23:44 → TELE-WESTW 07-10 03:01
PROVIDERS: ADMIT Nurse Practitioner Acute Care; ATTEND Nurse Practitioner Acute Care
PROC: 0HQ0XZZ Repair Scalp Skin, External Approach (ICD-10-PCS; principal; 2025-07-09)
DX: S01.01XA Laceration without foreign body of scalp, initial encounter (principal); G93.41 Metabolic encephalopathy; N17.0 Acute kidney failure with tubular necrosis; J81.1 Chronic pulmonary edema; E87.6 Hypokalemia; D72.829 Elevated white blood cell count, unspecified; F03.90 Unspecified dementia, unspecified severity, without behavioral disturbance, psychotic disturbance, mood disturbance, and anxiety; Z79.899 Other long term (current) drug therapy; W01.0XXA Fall on same level from slipping, tripping and stumbling without subsequent striking against object, initial encounter; Y93.01 Activity, walking, marching and hiking; Y92.098 Other place in other non-institutional residence as the place of occurrence of the external cause; Y99.8 Other external cause status; E16.2 Hypoglycemia, unspecified
CPT/HCPCS: 12001; 36415; 70450; 71045; 80048; 80053; 80320; 81001; 82962; 83036; 84484; 85025; 96365; 99291; G0378

== ENCOUNTER 2025-08-25 09:30 | Outpatient (CLI) | payer BC, MEDICAID ==
[2025-08-25 10:28] LABS: HDL Cholesterol 53 mg/dL (40-59)
[2025-08-25 10:32] LABS: Cholesterol 245 mg/dL (< 200); Triglycerides 165 mg/dL (< 150)
== END 2025-08-25 17:00 | disposition home or self-care (01) ==
LOC: LAB 09:30
PROVIDERS: ATTEND Internal Medicine
DX: M25.562 Pain in left knee (principal)
CPT/HCPCS: 36415; 80061; 82607; 82746; 84443